=== PATIENT | female | born 1990 | race Caucasian/White ===

== ENCOUNTER 2020-01-17 18:30 | Inpatient (IN) | payer BC, OTHER ==
--- NOTE | 2020-01-17 21:48 | PCM.LDHP ---
L&D History of Present Illness - General Date of Service: 01/17/20 (Admit H&P) Admit Problem/Dx: Admission Diagnosis/Problem Admission Diagnosis/Problem 01/17/20 21:36 labor established Source of Information: Patient, Family, Old Records, Provider, RN, RN Notes Reviewed, Significant Other, Other ([facility] ) History Limitations: Reports: No Limitations - History of Present Illness Introduction:: Ulices is a delightful 29yo WF in @ 38w3d for onset cxns starting this afternoon and getting more regular this evening. Passed her mucous plug and has had some bloody show. baby active. was seen in clinic today and had membranes stripped. No pre-E sx, and no other complaints. records reviewed. see in [facility] for details. hmb Timing/Duration: Reports: minutes: (2-3) Location, : Reports: Uterus Quality: Reports: Pressure Severity: Moderate Associated Symptoms: Reports: vaginal bleeding, vaginal discharge, mild amount - Related Data Allergies/Adverse Reactions: Allergies Allergy/AdvReac Type Severity Reaction Status Date / Time No Known Allergies Allergy Verified 01/17/20 19:46 Home Medications: Home Meds Vit with Ca/FA/Iron [ Plus Iron] 1 each PO DAILY tablet [Rx] Ferrous Sulfate 325 mg PO DAILY 01/17/20 [History] Past Medical History HEENT History: Reports: Impaired Vision Gastrointestinal History: Reports: Cholelithiasis [employer]CH[employer]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 On meds for 2 months only. Hematologic History: Reports: Anemia - Infectious Disease History Infectious Disease History: Reports: Chicken Pox - Past Surgical History HEENT Surgical History: Reports: LASIK, Oral Surgery GI Surgical History: Reports: Cholecystectomy Social & Family History - Family History Family Medical History: Noncontributory HEENT: Reports: Impaired Vision Oncologic: Reports: Lung, Other (See Below) Other Oncologic Family History: stomach - Tobacco Use Smoking Status *Q: Never Smoker Second Hand Smoke Exposure: No - Caffeine Use Caffeine Use: Reports: None - Recreational Drug Use Recreational Drug Use: No - Sexual History Sexual History: Reports: Single Partner - Living Situation & Occupation Living situation: Reports: , with Family Occupation: Employed Social History Comment: lives with Amish and their daughter Mehreen Serrano. 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 He works for [employer]. This is a planned --surprise gender. H&P Review of Systems - Review of Systems: Review Of Systems: Comprehensive ROS is negative, except as noted in HPI. L&D Exam - Exam Exam: See Below - Vital Signs Vital Signs: Last Vital Signs Temp 98.6 F 01/17/20 19:15 Pulse 96 01/17/20 19:15 Resp 16 01/17/20 19:15 BP 130/78 01/17/20 19:15 Pulse Ox Weight: 181 lb - OB Specific Contraction Duration (sec): 80-100 Contraction Frequency (min): 2.5-3 Contraction Intensity: Mild to Moderate - Frank Score Frank Score Cervix Position: Midposition Frank Score Consistency: Soft Frank Score Effacement: 51-70% Frank Score Dilation: 3-4 cm Frank Score 's Station: -1 ,0 Frank Score Total: 9 - Exam General: Alert, Oriented HEENT: Conjunctiva Clear, Mucosa Moist & [place], Nares Patent, Pupils Equal, Pupils Reactive Neck: Supple, Trachea Midline Lungs: Clear to Auscultation, Normal Respiratory Effort Cardiovascular: Regular Rate, Regular Rhythm GI/Abdominal Exam: Normal Bowel Sounds Rectal Exam: Normal Exam Genitourinary: Normal external exam, Cervical dilitation, Cervical discharge, Cervical fluid, Enlarged uterus, Vaginal discharge Back Exam: Normal Inspection, Full Range of Motion Extremities: Normal Inspection, Normal Range of Motion, Non-Tender, No Pedal Edema, Normal Capillary Refill Skin: Warm, Dry, Intact Neurological: Normal Speech, Normal Tone Psychiatric: Alert, Normal Affect, Normal Mood - Patient Data Lab Results Last 24 hrs: Laboratory Results - last 24 hr 01/17/20 01/17/20 Range/Units 19:00 20:18 WBC 15.9 H (5.0-10.0) 10^3/uL RBC 4.08 L (4.2-5.4) 10^6/uL Hgb 13.0 (12.0-16.0) g/dL Hct 38.1 (37.0-47.0) % MCV 93.4 D (80-100) fL MCH 31.9 (27.0-34.0) pg MCHC 34.1 (33.0-35.0) g/dL Plt Count 188 (150-450) 10^3/uL SARS-CoV-2 RNA (RT-PCR) Negative (NEGATIVE) Result Diagrams: 01/17/20 20:18 - Problem List (1) Blood type O+ SNOMED Code(s): 210269781 ICD Code: Z67.40 - TYPE O BLOOD, RH POSITIVE Status: Acute Current Visit : Yes (2) Group B Streptococcus not isolated SNOMED Code(s): 209332352 ICD Code: III2943 - Status: Acute Current Visit: Yes (3) Rubella immune SNOMED Code(s): 841426621 ICD Code: Z78.9 - OTHER SPECIFIED HEALTH STATUS Status: Acute Current Visit: Yes (4) NST (non-stress test) reactive SNOMED Code(s): 445451674 ICD Code: Z36.89 - ENCOUNTER FOR OTHER SPECIFIED SCREENING Status : Acute Current Visit: Yes Problem List Initiated/Reviewed/Updated: Yes Assessment/Plan Comment:: Assessment: 29yo @ 38w3d with onset cxns GBS negative blood type O+ Rubella immune NST reactive. AROM--clear fluid Plan: admit, routine admit orders and cares watch for cervical change and effective labor pattern. augmentation if indicated. she is planning intrathecal planning all questions answered for this delightful couple. david
[2020-01-17] MEDS ORDERED: Methylergonovine 0.2 MG/1 ML Amp IM PRN (22:15)
[2020-01-17] MEDS ORDERED: Carboprost Tromethamine 250 MCG/1 ML Amp IM PRN (22:15)
[2020-01-17] MEDS ORDERED: Sodium Chloride 0.9% 10 ML Syringe FLUSH PRN (22:15)
[2020-01-17] MEDS ORDERED: Ondansetron 4 MG/2 ML SDV IVPUSH PRN (22:15)
[2020-01-17] MEDS ORDERED: Misoprostol 400 MCG (4 X 100 MCG TAB) RECTAL PRN (22:15)
[2020-01-17] MEDS ORDERED: Tranexamic Acid 1,000 MG in Sodium Chloride 0.9% 100 ML IV PRN (22:15)
[2020-01-17] MEDS ORDERED: Lactated Ringers 1,000 ML IV ONE (22:15)
[2020-01-17] MEDS ORDERED: Acetaminophen 325 MG Tab PO PRN (22:15)
[2020-01-17] MEDS ORDERED: Lidocaine 1% 30 ML SDV INJECT PRN (22:15)
[2020-01-17] MEDS ORDERED: Oxytocin/Normal Saline 30 UNIT/500 ML BAG IV SCH (22:15)
[2020-01-17] MEDS: Lactated Ringers 1,000 ML IV SCH (23:54)
[2020-01-18] MEDS: Lactated Ringers 1,000 ML IV SCH ×2 (00:51→03:16)
[2020-01-18] MEDS ORDERED: Sodium Bicarbonate 4.2% 2.5 MEQ/5 ML SDV ONE ×2 (00:52→13:42)
[2020-01-18] MEDS ORDERED: EPINEPHrine 1 MG/1 ML Amp ONE ×2 (00:52→13:42)
[2020-01-18] MEDS ORDERED: fentaNYL 100 MCG/2 ML SDV ONE (00:52)
[2020-01-18] MEDS ORDERED: diphenhydrAMINE 50 MG Cap PO PRN (01:19)
[2020-01-18] MEDS ORDERED: Butorphanol 2 MG/ML SDV IVPUSH PRN (01:19)
[2020-01-18] MEDS ORDERED: Famotidine 20 MG/2 ML SDV IVPUSH PRN (01:19)
--- NOTE | 2020-01-18 01:21 | PCM.SN.2 ---
- Free Text/Narrative Note: Intrathecal.Sitting position, sterile prep and drape. 1% lidocaine w bicarb for skinwheal to L3 L4 interspace. Introducer, 24 ga Pencan x 1. Pos CSF, neg heme, neg parasthesia. 0.1 ml pf 1:1000 epi, 20 mcg pf sufenta, 30 mcg pf fentanyl, 0.4 ml pf NS and 6 mg of 0.75% pf bupivacaine injected after CSF aspiration. Pt to L lateral position. Procedure time 0050 to 0120
--- NOTE | 2020-01-18 05:11 | PCM.DEL ---
L & D Note - General Info Date of Service: 01/18/20 (time of delivery 446) Mother's Due Date: 01/28/20 (38w4d) - Delivery Note Labor: Spontaneous, Augmented by ARM, Augmented by Oxytocin Delivery Outcome: Livebirth Delivery Method: Spontaneous Vaginal Delivery-Single Delivery Mode: Spontaneous Presentation: Right Occiput Anterior (ERMAIS) Nuchal Cord: None Prep: Povidone-Iodine (Betadine Anesthesia Type: Intrathecal Amniotic Fluid Description: Clear Episiotomy Type: None Laceration: None Placenta: Intact, Spontaneous Cord: 3 Vessels Estimated Blood Loss: 112 Resuscitation Needed: No [place]: Suctioned, Bulb Syringe, Stimulated, Warmed, [place] Used Provider: Jonna Bustamante Score 1 min: 8 Score 5 min: 9 Second Stage Interventions: Reports: Pushing Effectively Delivery Comments (Free Text/Narrative):: Ulices is a delightful 29yo WF G2 now P2 who presented @ 38w3d with onset cxns. AROM and pitocin augmentation. intrathecal placed pt progressed to complete dilation and effectively pushed with just a couple contractions with legs in Daniel position assisted by nursing staff. viable female over intact perineum with strong cry at . APGARs 8 & 9 baby delivered to mom's chest for skin to skin contact and bonding/nursing cord doubly clamped by , then cut by Amish cord blood obtained, 3VC placenta delivered intact, complete fundus firm, minimal blood loss approx 100-150cc. mom and baby doing well. routine nursery and cares and orders. [facility] - General Info Date of Service: 01/18/20 (time of delivery 446) - Patient Data Vitals - Most Recent: Last Vital Signs Temp 98.1 F 01/18/20 02:15 Pulse 62 01/18/20 02:45 Resp 18 01/18/20 02:45 BP 89/46 L 01/18/20 02:45 Pulse Ox 98 01/18/20 02:45 Weight - Most Recent: 181 lb I&O - Last 24 Hours: Intake & Output 01/17/20 01/17/20 01/18/20 14:59 22:59 06:59 Intake Total 1999 Balance 1999 Lab Results Last 24 Hours: Laboratory Results - last 24 hr 01/17/20 01/17/20 Range/Units 19:00 20:18 WBC 15.9 H (5.0-10.0) 10^3/uL RBC 4.08 L (4.2-5.4) 10^6/uL Hgb 13.0 (12.0-16.0) g/dL Hct 38.1 (37.0-47.0) % MCV 93.4 D (80-100) fL MCH 31.9 (27.0-34.0) pg MCHC 34.1 (33.0-35.0) g/dL Plt Count 188 (150-450) 10^3/uL SARS-CoV-2 RNA (RT-PCR) Negative (NEGATIVE) Med Orders - Current: Current Medications Acetaminophen (Tylenol) 650 mg PO Q4H PRN PRN Reason: Pain (Mild 1-3) and fever Butorphanol Tartrate (Stadol) 0.4 mg IVPUSH ONETIME PRN PRN Reason: Itching Carboprost Tromethamine (Hemabate Ds) 250 mcg IM ASDIRECTED PRN PRN Reason: HEMORRHAGE Diphenhydramine HCl (Benadryl) 50 mg PO ONETIME PRN PRN Reason: Itching Famotidine (Pepcid) 20 mg IVPUSH ONETIME PRN PRN Reason: Itching Lactated Ringer's (Ringers, Lactated) 1,000 mls @ 125 mls/hr IV ASDIRECTED FLORA Last Admin: 01/18/20 03:16 Dose: 125 mls/hr Oxytocin/Sodium Chloride (Pitocin In Ns 30 Unit/500 Ml) 30 unit in 500 mls @ 2 mls/hr IV TITRATE FLORA; Protocol Last Titration: 01/18/20 04:50 Dose: 500 munits/min, 500 mls/hr Tranexamic Acid 1,000 mg/ (Sodium Chloride) 110 mls @ 660 mls/hr IV ONETIME PRN PRN Reason: Bleeding Lidocaine HCl (Xylocaine-Mpf 1%) 30 ml INJECT ASDIRECTED PRN PRN Reason: Perineal Repair Methylergonovine Maleate (Methergine) 0.2 mg IM ASDIRECTED PRN PRN Reason: Hemorrhage Misoprostol (Cytotec) 800 mcg RECTAL ASDIRECTED PRN PRN Reason: Hemorrhage Ondansetron HCl (Zofran) 4 mg IVPUSH Q4H PRN PRN Reason: Nausea/Vomiting Last Admin: 01/18/20 00:47 Dose: 4 mg Sodium Chloride (Saline Flush) 10 ml FLUSH ASDIRECTED PRN PRN Reason: Keep Vein Open Discontinued Medications Epinephrine HCl (Adrenalin) Confirm Administered Dose 1 mg .ROUTE .STK-MED ONE Stop: 01/18/20 00:53 Fentanyl (Sublimaze) Confirm Administered Dose 100 mcg .ROUTE .STK-MED ONE Stop: 01/18/20 00:53 Lactated Ringer's (Ringers, Lactated) 1,000 mls @ 999 mls/hr IV BOLUS ONE Stop: 01/17/20 23:15 Sodium Bicarbonate (Sodium Bicarbonate 4.2%) Confirm Administered Dose 2.5 meq .ROUTE .STK-MED ONE Stop: 01/18/20 00:53 Sufentanil Citrate (Sufenta) Confirm Administered Dose 50 mcg .ROUTE .STK-MED ONE Stop: 01/18/20 00:53 - Problem List & Annotations (1) Blood type O+ SNOMED Code(s): 975641074 Code(s): Z67.40 - TYPE O BLOOD, RH POSITIVE Status: Acute Current Visit: Yes (2) Group B Streptococcus not isolated SNOMED Code(s): 690558072 Code(s): NJH4431 - Status: Acute Current Visit: Yes (3) Rubella immune SNOMED Code(s): 888897141 Code(s): Z78.9 - OTHER SPECIFIED HEALTH STATUS Status: Acute Current Visit: Yes (4) NST (non-stress test) reactive SNOMED Code(s): 942301433 Code(s): Z36.89 - ENCOUNTER FOR OTHER SPECIFIED SCREENING Status : Acute Current Visit: Yes - Problem List Review Problem List Initiated/Reviewed/Updated: Yes - My Orders Last 24 Hours: My Active Orders 01/17/20 22:15 Acetaminophen [Tylenol] 650 mg PO Q4H PRN Carboprost Tromethamine [Hemabate DS] 250 mcg IM ASDIRECTED PRN Lactated Ringers [Ringers, Lactated] 1,000 ml IV ASDIRECTED Lidocaine 1% [Xylocaine-MPF 1%] 30 ml INJECT ASDIRECTED PRN Methylergonovine [Methergine] 0.2 mg IM ASDIRECTED PRN Ondansetron [Zofran] 4 mg IVPUSH Q4H PRN Oxytocin/Normal Saline [Pitocin in NS 30 UNIT/500 ML] 30 unit in 500 ml IV TITRATE Sodium Chloride 0.9% [Saline Flush] 10 ml FLUSH ASDIRECTED PRN Tranexamic Acid [Cyklokapron] 1,000 mg Sodium Chloride 0.9% [Normal Saline] 100 ml IV ONETIME miSOPROStoL [Cytotec] 800 mcg RECTAL ASDIRECTED PRN Resuscitation Status Routine 01/17/20 22:17 Patient Status [ADT] Routine Communication Order [RC] ASDIRECTED Heart Tones [RC] PER UNIT ROUTINE Notify Provider Vital Signs OB [RC] ASDIRECTED Notify Provider [RC] PRN Up ad Jeana [RC] ASDIRECTED Vital Signs [RC] PER UNIT ROUTINE Saline Lock Insert [OM.PC] Routine 01/17/20 22:20 Pump Management, Intrathecal [RC] ASDIRECTED - Plan Plan:: Assessment: 29yo @ 38w3d with onset cxns GBS negative blood type O+ Rubella immune NST reactive. AROM--clear fluid Plan: admit, routine admit orders and cares watch for cervical change and effective labor pattern. augmentation if indicated. she is planning intrathecal planning all questions answered for this delightful couple. b Delivery: 0447 on 01-18-2020 over intact perineum BW 3550g/ 7lb 13oz viable female APGARs 8 & 9 no complications. see delivery note. b
[2020-01-18] MEDS ORDERED: Docusate Sodium 100 MG Cap PO PRN (05:32)
[2020-01-18] MEDS ORDERED: Benzocaine/Menthol 20%-0.5% Spray 56 GM Canister TOP PRN (05:32)
[2020-01-18] MEDS ORDERED: Sodium Chloride 0.9% 10 ML Syringe FLUSH PRN (05:32)
[2020-01-18] MEDS ORDERED: Oxytocin 10 Units/1 ML SDV IM PRN (05:32)
[2020-01-18] MEDS ORDERED: Simethicone 80 MG Tab.Chew PO PRN (05:32)
[2020-01-18] MEDS ORDERED: Zolpidem 5 MG Tab PO PRN (05:32)
[2020-01-18] MEDS: Ibuprofen 800 MG Tab PO PRN ×2 (12:30→23:08)
[2020-01-18] MEDS: Prenatal Multivitamin with Calcium/Folic Acid/Iron Tab PO SCH ×2 (13:30→17:23)
[2020-01-18] MEDS ORDERED: Sodium Chloride 0.9% 10 ML Syringe ONE (13:42)
[2020-01-18] MEDS ORDERED: fentaNYL 100 MCG/2 ML SDV ITHECAL ONE (13:42)
[2020-01-19 08:52] VITALS: BP 97/54; PULSE 83
[2020-01-19] MEDS: Prenatal Multivitamin with Calcium/Folic Acid/Iron Tab PO SCH (09:30)
[2020-01-19] MEDS: Ibuprofen 800 MG Tab PO PRN (09:31)
--- NOTE | 2020-01-19 18:06 | PCM.DCSUM1 ---
Discharge Summary - Hospital Course Diagnosis: Stroke: No - Discharge Data Discharge Disposition: Home, Self-Care 01 Condition: Good - Referral to Home Health Primary Care Physician: Jonna Bustamante MD - Discharge Diagnosis/Problem(s) (1) Blood type O+ SNOMED Code(s): 200948317 ICD Code: Z67.40 - TYPE O BLOOD, RH POSITIVE Status: Acute (2) Group B Streptococcus not isolated SNOMED Code(s): 232196070 ICD Code: [id number] - Status: Acute (3) Rubella immune SNOMED Code(s): 709808742 ICD Code: Z78.9 - OTHER SPECIFIED HEALTH STATUS Status: Acute (4) NST (non-stress test) reactive SNOMED Code(s): 074827459 ICD Code: Z36.89 - ENCOUNTER FOR OTHER SPECIFIED SCREENING Status : Acute - Discharge Plan Home Medications: Home Meds Vit with Ca/FA/Iron [ Plus Iron] 1 each PO DAILY tablet [Rx] Ferrous Sulfate 325 mg PO DAILY 01/17/20 [History] Patient Handouts: Baby Blues, Care After Vaginal Delivery - Patient Data Vitals - Most Recent: Last Vital Signs Temp 98.4 F 01/19/20 08:00 Pulse 83 01/19/20 08:00 Resp 18 01/19/20 08:00 BP 97/54 L 01/19/20 08:00 Pulse Ox 98 01/19/20 08:00 Weight - Most Recent: 181 lb Med Orders - Current: Current Medications Discontinued Medications Acetaminophen (Tylenol) 650 mg PO Q4H PRN PRN Reason: Pain (Mild 1-3) and fever Benzocaine/Menthol (Dermoplast Pain Relief [place]) 0 gm TOP Q4H PRN PRN Reason: Perineal comfort measures Butorphanol Tartrate (Stadol) 0.4 mg IVPUSH ONETIME PRN PRN Reason: Itching Carboprost Tromethamine (Hemabate Ds) 250 mcg IM ASDIRECTED PRN PRN Reason: HEMORRHAGE Diphenhydramine HCl (Benadryl) 50 mg PO ONETIME PRN PRN Reason: Itching Docusate Sodium (Colace) 100 mg PO BID PRN PRN Reason: Constipation Last Admin: 01/19/20 09:30 Dose: 100 mg Epinephrine HCl (Adrenalin) Confirm Administered Dose 1 mg .ROUTE .STK-MED ONE Stop: 01/18/20 00:53 Last Admin: 01/18/20 07:03 Dose: Not Given Epinephrine HCl (Adrenalin) 0.1 mg .XX .STK-MED ONE Stop: 01/18/20 13:43 Famotidine (Pepcid) 20 mg IVPUSH ONETIME PRN PRN Reason: Itching Last Admin: 01/18/20 05:15 Dose: 20 mg Fentanyl (Sublimaze) Confirm Administered Dose 100 mcg .ROUTE .STK-MED ONE Stop: 01/18/20 00:53 Last Admin: 01/18/20 07:03 Dose: Not Given Fentanyl (Sublimaze) 30 mcg ITHECAL .STK-MED ONE Stop: 01/18/20 13:43 Lactated Ringer's (Ringers, Lactated) 1,000 mls @ 999 mls/hr IV BOLUS ONE Stop: 01/17/20 23:15 Last Admin: 01/18/20 13:30 Dose: Not Given Lactated Ringer's (Ringers, Lactated) 1,000 mls @ 125 mls/hr IV ASDIRECTED FLORA Last Infusion: 01/18/20 08:00 Dose: 125 mls/hr Oxytocin/Sodium Chloride (Pitocin In Ns 30 Unit/500 Ml) 30 unit in 500 mls @ 2 mls/hr IV TITRATE FLORA; Protocol Last Titration: 01/18/20 06:45 Dose: 50 munits/min, 50 mls/hr Tranexamic Acid 1,000 mg/ (Sodium Chloride) 110 mls @ 660 mls/hr IV ONETIME PRN PRN Reason: Bleeding Ibuprofen (Motrin) 800 mg PO Q8H PRN PRN Reason: Mild Pain or Fever Last Admin: 01/19/20 09:31 Dose: 800 mg Lidocaine HCl (Xylocaine-Mpf 1%) 30 ml INJECT ASDIRECTED PRN PRN Reason: Perineal Repair Methylergonovine Maleate (Methergine) 0.2 mg IM ASDIRECTED PRN PRN Reason: Hemorrhage Misoprostol (Cytotec) 800 mcg RECTAL ASDIRECTED PRN PRN Reason: Hemorrhage Ondansetron HCl (Zofran) 4 mg IVPUSH Q4H PRN PRN Reason: Nausea/Vomiting Last Admin: 01/18/20 00:47 Dose: 4 mg Oxytocin (Pitocin) 10 unit IM ONETIME PRN PRN Reason: Bleeding Prenat Multivit/[place]ew[place]/Iron/Folic Ac ( Plus Iron) 1 each PO DAILY FLORA Last Admin: 01/19/20 09:30 Dose: 1 each Simethicone (Simethicone) 80 mg PO Q4H PRN PRN Reason: Gas Sodium Bicarbonate (Sodium Bicarbonate 4.2%) Confirm Administered Dose 2.5 meq .ROUTE .STK-MED ONE Stop: 01/18/20 00:53 Last Admin: 01/18/20 07:03 Dose: Not Given Sodium Bicarbonate (Sodium Bicarbonate 4.2%) 0.5 meq .XX .STK-MED ONE Stop: 01/18/20 13:43 Sodium Chloride (Saline Flush) 10 ml FLUSH ASDIRECTED PRN PRN Reason: Keep Vein Open Sodium Chloride (Saline Flush) 0.4 ml .XX .STK-MED ONE Stop: 01/18/20 13:43 Sufentanil Citrate (Sufenta) Confirm Administered Dose 50 mcg .ROUTE .STK-MED ONE Stop: 01/18/20 00:53 Last Admin: 01/18/20 07:03 Dose: Not Given Sufentanil Citrate (Sufenta) 20 mcg ITHECAL .STK-MED ONE Stop: 01/18/20 13:43 Wityosef Chloe (Medi-Pads) 1 each TOP Q4HR PRN PRN Reason: Perineal Comfort Measure Zolpidem Tartrate (Ambien) 5 mg PO BEDTIME PRN PRN Reason: Insomnia
== END 2020-01-19 14:45 | disposition home or self-care (01) | DRG 560 ==
LOC: DL.OBCHECK 18:30 → DL.OB 20:30 → OBSVTOIN 01-18 04:47 → DL.MS 01-18 07:42
PROVIDERS: ADMIT Family Medicine; ATTEND Family Medicine
PROC: 10E0XZZ Delivery of Products of Conception, External Approach (ICD-10-PCS; principal; 2020-01-18)
PROC: 10907ZC Drainage of Amniotic Fluid, Therapeutic from Products of Conception, Via Natural or Artificial Opening (ICD-10-PCS; 2020-01-18)
PROC: 3E0R3BZ Introduction of Anesthetic Agent into Spinal Canal, Percutaneous Approach (ICD-10-PCS; 2020-01-18)
PROC: 00HU33Z Insertion of Infusion Device into Spinal Canal, Percutaneous Approach (ICD-10-PCS; 2020-01-18)
DX: O99.02 Anemia complicating childbirth (principal); D64.9 Anemia, unspecified; Z37.0 Single live birth; Z3A.38 38 weeks gestation of pregnancy
CPT/HCPCS: 36415; 59409; 85027; A9270-GY; J0171; J2405; J2590; J3010; J3490; J7120; U0002

== ENCOUNTER 2023-11-12 07:54 | Observation (INO) | payer OTHER ==
[2023-11-12] MEDS ORDERED: Methylergonovine 0.2 MG/1 ML Amp IM PRN (08:00)
[2023-11-12] MEDS ORDERED: Carboprost Tromethamine 250 MCG/1 ML Amp IM PRN (08:00)
[2023-11-12] MEDS ORDERED: Misoprostol 400 MCG (4 X 100 MCG TAB) RECTAL PRN (08:00)
[2023-11-12] MEDS ORDERED: Tranexamic Acid 1,000 MG in Sodium Chloride 0.9% 100 ML IV PRN (08:00)
[2023-11-12] MEDS ORDERED: Sodium Chloride 0.9% 10 ML Syringe FLUSH PRN ×2 (08:00→12:02)
[2023-11-12 08:29] LABS: HEMATOCRIT 34.4 % (37.0-47.0); HEMOGLOBIN 11.3 g/dL (12.0-16.0); MEAN CORPUSCULAR HEMOGLOBIN 28.8 pg (27.0-34.0); MEAN CORPUSCULAR HGB CONC 32.8 g/dL (33.0-35.0); MEAN CORPUSCULAR VOLUME 87.5 fL (80-100); RED BLOOD CELL COUNT 3.93 10^6/uL (4.2-5.4); WHITE BLOOD CELL COUNT,WBC 11.4 10^3/uL (5.0-10.0)
[2023-11-12] MEDS: Lactated Ringers 1,000 ML IV ONE (09:53)
[2023-11-12] MEDS: Oxytocin/Normal Saline 30 UNIT/500 ML BAG IV SCH (09:54)
[2023-11-12] MEDS: Ondansetron 4 MG/2 ML SDV IVPUSH PRN (10:54)
[2023-11-12] MEDS ORDERED: fentaNYL 100 MCG/2 ML SDV ONE (10:54)
[2023-11-12] MEDS ORDERED: Bupivacaine 0.25% 10 ML SDV ONE (10:54)
[2023-11-12] MEDS: Lactated Ringers 1,000 ML IV SCH (11:08)
[2023-11-12] MEDS ORDERED: Phenylephrine HCl In 0.9% NaCl 1 MG/10 ML Syringe IVPUSH PRN (11:17)
[2023-11-12] MEDS ORDERED: ePHEDrine 50 MG/ML SDV IVPUSH PRN (11:17)
[2023-11-12] MEDS ORDERED: Ropivacaine 200 MG in Premix Bag 1 BAG EPIDUR SCH (11:30)
[2023-11-12] MEDS ORDERED: Simethicone 80 MG Tab.Chew PO PRN (12:02)
[2023-11-12] MEDS ORDERED: Hydrocortisone 2.5% Crm 30 GM Tube TOP PRN (12:02)
[2023-11-12] MEDS ORDERED: Oxytocin 10 Units/1 ML SDV IM PRN (12:02)
[2023-11-12] MEDS: Benzocaine/Menthol 20%-0.5% Spray 78 GM Cannister TOP PRN (13:57)
[2023-11-12] MEDS: Witch Hazel Medicated Pads 100/Jar TOP PRN (13:58)
[2023-11-12] MEDS: Ibuprofen 800 MG Tab PO PRN (14:44)
[2023-11-12] MEDS: Acetaminophen 325 MG Tab PO PRN (19:28)
[2023-11-12] MEDS: Lidocaine 1% 30 ML SDV INJECT ONE (21:51)
[2023-11-12] MEDS: Docusate Sodium 100 MG Cap PO PRN (22:33)
[2023-11-13 06:24] LABS: HEMATOCRIT 32.4 % (37.0-47.0); HEMOGLOBIN 10.5 g/dL (12.0-16.0); MEAN CORPUSCULAR HEMOGLOBIN 28.8 pg (27.0-34.0); MEAN CORPUSCULAR HGB CONC 32.4 g/dL (33.0-35.0); MEAN CORPUSCULAR VOLUME 88.8 fL (80-100); RED BLOOD CELL COUNT 3.65 10^6/uL (4.2-5.4); WHITE BLOOD CELL COUNT,WBC 11.8 10^3/uL (5.0-10.0)
[2023-11-13 07:42] VITALS: BP 110/73; PULSE 71
[2023-11-13] MEDS: Prenatal Multivitamin with Calcium/Folic Acid/Iron Tab PO SCH (07:59)
== END 2023-11-13 12:36 | disposition home or self-care (01) ==
LOC: DL.OB 07:54
PROVIDERS: ADMIT Family Medicine; ATTEND Family Medicine
DX: O75.5 Delayed delivery after artificial rupture of membranes (principal); Z37.0 Single live birth; Z3A.39 39 weeks gestation of pregnancy
CPT/HCPCS: 36415; 51701; 59025; 59409; 85027; A9270; C1729; J2405; J2590; J7120